=== PATIENT | male | born 1960 | race Two or more races ===

== ENCOUNTER 2021-02-25 14:59 | Observation (INO) | payer OTHER ==
[2021-02-25 15:23] VITALS: BMI 26.6
[2021-02-25] MEDS ORDERED: PIPERACILLIN/TAZOB 3.375 GM 3.375 GM in DEXTROSE 5%-WATER - 50 ML IVPB ONE (15:52)
[2021-02-25] MEDS ORDERED: VANCOMYCIN 1 GM in D5W (PRE-DOCKED) 1,000 MG/250 ML IVPB ONE (15:52)
[2021-02-25] MEDS ORDERED: SODIUM CHLORIDE 1,000 ML IV STA (15:52)
[2021-02-25] MEDS ORDERED: ACETAMINOPHEN 325 MG TABLET (FP) PO ONE (15:55)
[2021-02-25] MEDS ORDERED: ACETAMINOPHEN 325 MG TABLET (FP) ONE (15:57)
[2021-02-25] MEDS ORDERED: PIPERACILLIN/TAZOB 3.375 GM 3.375 GM/50 ML BAG IVPB ONE (15:57)
[2021-02-25] MEDS ORDERED: VANCOMYCIN 1 GRAM (PRE-DOCKED) 1,000 MG/250 ML BAG IVPB ONE (15:57)
[2021-02-25] MEDS ORDERED: SILVER SULFADIAZINE 1% TOP CREAM 50 GM JAR TP ONE ×2 (16:37→16:54)
[2021-02-25 16:45] LABS: BASO % 0.3 % (0-2.0); EOS % 0.4 % (0-4.5); HEMATOCRIT 40.9 % (35.4-49); HEMOGLOBIN 14.4 GM/dL (11.7-16.9); MCH 29.2 pg (25.7-33.7); MCHC 35.3 g/dl (32.0-35.9); MEAN CELL VOLUME 82.7 fl (80-96); MEAN PLT VOLUME 8.3 fl (7.5-11.1); MONO % 7.1 % (3.8-10.2); NEUT % 81.2 % (42.8-82.8); PLATELET COUNT 158 K/MM3 (134-434); RBC 4.95 M/mm3 (4.00-5.60); RDW 13.1 % (11.9-15.9); WHITE BLOOD COUNT 10.6 K/mm3 (4.0-10.0)
[2021-02-25 16:53] LABS: INR 1.04 (0.83-1.09); PROTHROMBIN TIME (PATIENT) 12.6 SEC (9.7-13.0)
[2021-02-25 17:00] LABS: CHLORIDE 103 mmol/L (98-107); SODIUM 139 mmol/L (136-145)
[2021-02-25 17:02] LABS: CALCIUM 8.6 mg/dL (8.5-10.1)
[2021-02-25 17:03] LABS: ANION GAP 7 MMOL/L (8-16); BLOOD UREA NITROGEN 16.6 mg/dL (7-18); CO2 30 mmol/L (21-32); GLUCOSE,RANDOM 119 mg/dL (74-106)
[2021-02-25 17:07] LABS: BILIRUBIN,TOTAL 0.6 mg/dL (0.2-1); CREATININE 1.2 mg/dL (0.55-1.3); SGOT/AST 24 U/L (15-37); SGPT/ALT 36 U/L (13-61); TOT PROT 6.9 g/dl (6.4-8.2)
[2021-02-25 17:09] LABS: ALK PHOS 101 U/L (45-117)
[2021-02-25] MEDS ORDERED: ONDANSETRON 4 MG/2 ML VIAL IVPUSH PRN (18:30)
[2021-02-25] MEDS ORDERED: POTASSIUM CHLORIDE TABS 20 MEQ TABLET.ER (FP) PO ONE ×2 (18:47→18:56)
[2021-02-25] MEDS ORDERED: VANCOMYCIN 1 GM in D5W (PRE-DOCKED) 1,000 MG/250 ML IVPB SCH (22:00)
[2021-02-26] MEDS ORDERED: POTASSIUM CHLORIDE TABS 20 MEQ TABLET.ER (FP) PO ONE
[2021-02-26] MEDS ORDERED: PIPERACILLIN/TAZOBACTAM 3.375 GM VIAL IVPB ONE ×2 (01:28→10:17)
[2021-02-26] MEDS ORDERED: DEXTROSE 5%-WATER - 50 ML IVPB ONE ×2 (01:29→10:17)
[2021-02-26] MEDS: PIPERACILLIN/TAZOB 3.375 GM 3.375 GM in DEXTROSE 5%-WATER - 50 ML IVPB SCH ×2 (01:59→10:19)
[2021-02-26] MEDS ORDERED: PIPERACILLIN/TAZOB 3.375 GM 3.375 GM in DEXTROSE 5%-WATER - 50 ML IVPB SCH (02:00)
[2021-02-26] MEDS ORDERED: VANCOMYCIN 1 GM in D5W (PRE-DOCKED) 1,000 MG/250 ML IVPB SCH (04:00)
[2021-02-26] MEDS ORDERED: SILVER SULFADIAZINE 1% TOP CREAM 50 GM JAR TP ONE (08:39)
[2021-02-26 08:59] LABS: HEMATOCRIT 39.4 % (35.4-49); HEMOGLOBIN 13.9 GM/dL (11.7-16.9); MCH 29.2 pg (25.7-33.7); MCHC 35.4 g/dl (32.0-35.9); MEAN CELL VOLUME 82.6 fl (80-96); MEAN PLT VOLUME 8.3 fl (7.5-11.1); PLATELET COUNT 138 K/MM3 (134-434); RBC 4.77 M/mm3 (4.00-5.60); RDW 13.2 % (11.9-15.9); WHITE BLOOD COUNT 6.8 K/mm3 (4.0-10.0)
[2021-02-26 09:54] LABS: CALCIUM 8.1 mg/dL (8.5-10.1)
[2021-02-26] MEDS: HYDROCHLOROTHIAZIDE 12.5 MG CAPSULE (FP) PO SCH (10:18)
[2021-02-26] MEDS ORDERED: CEFAZOLIN 2 GM/D5W 2 GM/50 ML ML IVPB SCH (15:00)
[2021-02-26] MEDS: CEFAZOLIN 2 GM/D5W 2 GM/50 ML ML IVPB SCH (20:59)
[2021-02-27] MEDS: CEFAZOLIN 2 GM/D5W 2 GM/50 ML ML IVPB SCH ×2 (01:23→09:19)
[2021-02-27 08:58] VITALS: BP 154/88; PULSE 87; TEMP 98.6
[2021-02-27] MEDS: HYDROCHLOROTHIAZIDE 12.5 MG CAPSULE (FP) PO SCH (09:19)
[2021-02-27] MEDS ORDERED: SILVER SULFADIAZINE 1% TOP CREAM 50 GM JAR TP SCH (10:00)
== END 2021-02-27 14:19 | disposition home or self-care (01) ==
LOC: JER 14:59 → UNDOADMOB 17:50 → INTOOBSV 17:50 → JERBED 17:50 → J6S 23:26 → JERBED 02-27 09:21
PROVIDERS: ADMIT Internal Medicine; ATTEND Student in an Organized Health Care Education/Training Program
PROC: 3E03329 Introduction of Other Anti-infective into Peripheral Vein, Percutaneous Approach (ICD-10-PCS; principal; 2021-02-27)
PROC: 3E0337Z Introduction of Electrolytic and Water Balance Substance into Peripheral Vein, Percutaneous Approach (ICD-10-PCS; 2021-02-27)
DX: T23.091A Burn of unspecified degree of multiple sites of right wrist and hand, initial encounter (principal); L03.011 Cellulitis of right finger; E87.6 Hypokalemia; I10 Essential (primary) hypertension; Z29.9 Encounter for prophylactic measures, unspecified; T31.0 Burns involving less than 10% of body surface; X08.8XXA Exposure to other specified smoke, fire and flames, initial encounter; Y93.89 Activity, other specified; Y92.89 Other specified places as the place of occurrence of the external cause; Y99.8 Other external cause status; R50.9 Fever, unspecified; F17.210 Nicotine dependence, cigarettes, uncomplicated
CPT/HCPCS: 36415; 71045-TC-FY; 73130-TC-RT-FY; 80048; 80053; 84484; 85025; 85027; 85610; 85730; 86850; 86900; 86901; 87040; 93005; 93010; 96365; 96366; 96367; 96375; 99285-25; C9803; G0378; U0003; U0005

== ENCOUNTER 2022-07-08 04:05 | Day surgery (SDC) | payer OTHER ==
[2022-07-04 11:23] VITALS: BMI 26.6
[2022-07-08 09:53] VITALS: RESP 18
[2022-07-08] MEDS ORDERED: PROPOFOL 20 ML ONE (11:40)
[2022-07-08] MEDS ORDERED: MIDAZOLAM HCL 2 MG/2 ML SINGLE DOSE VIAL ONE (11:40)
[2022-07-08 14:18] VITALS: PULSE 73; TEMP 98
[2022-07-08 14:20] VITALS: BP 128/80
== END 2022-07-08 14:32 | disposition home or self-care (01) ==
LOC: JASU-SURG 04:05
PROVIDERS: ATTEND Urology
PROC: 0TF3XZZ Fragmentation in Right Kidney Pelvis, External Approach (ICD-10-PCS; principal; 2022-07-08 11:00)
DX: N20.0 Calculus of kidney (principal)

== ENCOUNTER 2022-12-14 00:47 | Emergency (ER) | payer OTHER ==
[2022-12-14 01:39] VITALS: BP 118/82; PULSE 94; RESP 18; TEMP 99; BMI 26.6
[2022-12-14] MEDS ORDERED: ACETAMINOPHEN 500 MG TABLET (FP) PO ONE (01:42)
[2022-12-14] MEDS ORDERED: LIDOCAINE 5% TOPICAL PATCH TP ONE (01:49)
[2022-12-14] MEDS ORDERED: LIDOCAINE 5% TOPICAL PATCH ONE (01:57)
[2022-12-14] MEDS ORDERED: ACETAMINOPHEN 500 MG TABLET (FP) ONE (01:58)
[2022-12-14] MEDS ORDERED: IBUPROFEN 600 MG TABLET (FP) PO ONE ×2 (02:19→03:35)
[2022-12-14] MEDS ORDERED: LIDOCAINE PATCH REMOVAL MC ONE (14:00)
== END 2022-12-14 04:13 | disposition home or self-care (01) ==
LOC: JER 00:47
DX: S20.211A Contusion of right front wall of thorax, initial encounter (principal); Y04.0XXA Assault by unarmed brawl or fight, initial encounter
CPT/HCPCS: 71101-TC-LT-FY; 93005; 93010; 99284-25

== ENCOUNTER 2023-10-27 04:29 | Day surgery (SDC) | payer OTHER ==
[2023-10-22 12:45] VITALS: BMI 26.6
[2023-10-27] MEDS ORDERED: PROPOFOL 20 ML ONE (10:01)
[2023-10-27] MEDS ORDERED: LIDOCAINE HCL/PF 2% SDV 5ML VIAL ONE (10:02)
[2023-10-27] MEDS ORDERED: DEXAMETHASONE SOD PHOSPHATE 4 MG/1 ML VIAL ONE (10:22)
[2023-10-27] MEDS ORDERED: ONDANSETRON 4 MG/2 ML VIAL ONE (10:22)
[2023-10-27] MEDS ORDERED: ONDANSETRON 4 MG/2 ML VIAL IVPUSH PRN (11:14)
[2023-10-27] MEDS ORDERED: PROMETHAZINE HCL 25 MG/1 ML VIAL IVPB PRN (11:14)
[2023-10-27] MEDS ORDERED: oxyCODONE HCL 5 MG TABLET PO PRN (11:14)
[2023-10-27] MEDS ORDERED: LACTATED RINGERS SOLUTION 1,000 ML IV SCH (11:15)
[2023-10-27 11:56] VITALS: RESP 18
[2023-10-27 12:24] VITALS: TEMP 97.8
[2023-10-27 12:57] VITALS: BP 133/74; PULSE 80
== END 2023-10-27 13:24 | disposition home or self-care (01) ==
LOC: JASU-SURG 04:29
PROVIDERS: ATTEND Urology
PROC: 0TCB8ZZ Extirpation of Matter from Bladder, Via Natural or Artificial Opening Endoscopic (ICD-10-PCS; principal; 2023-10-27 11:00)
DX: N21.0 Calculus in bladder (principal)
CPT/HCPCS: 36415; 82360; 88300-TC; 94760; C1758